=== PATIENT | female | born 1990 | race Hispanic/Latino ===

== ENCOUNTER → 2024-10-31 | Outpatient (CLI) | payer OTHER ==
--- NOTE | 2024-11-08 12:59 | HMCIMG ---
Right BREAST ULTRASOUND: clinical history lump in the right breast Finding: Real-time examination of the [right/left] breast demonstrates mildly heterogeneous echotexture throughout the breast. The right breast at 8:00 there is a hyperechoic lesion well defined measuring 1.1 x 1.0 x 1.2 cm with about vascularity suggesting of a possible fibroadenoma. Due to patient lactating and breast-feeding I would not recommend biopsy but follow. The right breast at 10:00 there is a complex cyst measuring 3 x 3.1 x 2.6 cm. There is too small benign-appearing axillary lymph node measuring 1.6 x 0.6 x 0.8 submitted. There is a second lymph node measuring 0.9 x 0.8 x 1.1 cm.. IMPRESSION: There is a complex lesion cystic lesion with solid and cystic component measuring 3.0 x 3.1 x 2.6 cm. When patient is not lactating I would recommend ultrasound biopsy. There is a hyperechoic lesion seen in the right breast at 8:00 measuring 1.1 x 1.0 x 1.2 cm. Due to patient lactating I would recommend patient return for six-month follow-up CATEGORY 3: PROBABLE BENIGN-SHORT INTERVAL FOLLOWUP SUGGESTED Recommend monthly self breast exam as well as annual clinical examination. A negative x-ray should not delay biopsy if a dominant or clinically suspicious mass is present, since 8-10% of cancers are not identified by mammography. Dense breasts particularly, may obscure an underlying neoplasm. Some of these may be detected clinically and therefore, clinical examination is an essential part of breast evaluation.
== END | disposition home or self-care (01) ==
LOC: RAH 09:52
PROVIDERS: ATTEND Obstetrics & Gynecology
DX: N63.11 Unspecified lump in the right breast, upper outer quadrant (principal)
CPT/HCPCS: 76641